=== PATIENT | male | born 1965 | race African-American/Black ===

== ENCOUNTER 2020-04-29 05:42 | Day surgery (SDC) | payer MEDICAID ==
[~2020-04-29] VITALS: Ht 175.3 cm; Wt 68.9 kg
[2020-04-29 06:21] LABS: BASOPHILS 0.4 % (0-2); EOSINOPHILS 2.1 % (0-7); HEMATOCRIT 41.6 % (42.0-54.0); HEMOGLOBIN 14.6 g/dL (13.5-17.5); IMMATURE GRANULOCYTES 0.2 % (0-5); LYMPHOCYTES 37.5 % (15-50); MCH 31.3 pg (26.0-34.0); MCHC 35.1 g/dL (31.0-37.0); MCV 89.1 fL (80.0-100.0); MEAN PLATELET VOLUME 9.9 fL (7.4-10.4); MONOCYTES 8.7 % (2-11); NEUTROPHILS 51.1 % (40-80); PLATELET COUNT 221 10x3/uL (130-400); RBC 4.67 10x6/uL (4.20-6.10); RDW 14.2 % (11.5-14.5); WBC 5.3 10x3/uL (4.8-10.8)
[2020-04-29 06:22] LABS: ANION GAP 14.3 mmol/L (8-16); CALCIUM 9.1 mg/dL (8.5-10.1); CARBON DIOXIDE 24.1 mmol/L (21.0-32.0); CREATININE - SERUM 1.1 mg/dL (0.6-1.3); POTASSIUM - SERUM 3.4 mmol/L (3.5-5.1)
[2020-04-29 06:33] VITALS: BP 117/81; Ht 175.3 cm; Wt 68.9 kg
== END 2020-04-29 10:40 | disposition home or self-care (01) ==
LOC: D.OPS 05:42
PROVIDERS: Anesthesiology; ATTEND Surgery
DX: L72.3 Sebaceous cyst (principal)